=== PATIENT | male | born 1945 | race American Indian/Alaskan Native ===

== ENCOUNTER 2018-05-22 08:15 | Outpatient (CLI) | payer MEDICARE ==
--- NOTE | 2018-05-22 13:34 | PET Report ---
PET/CT:05/22/18 08:15:00 CLINICAL: Lung cancer RADIOPHARMACEUTICAL: 12.767mCi F18-FDG. COMPARISON: None. TECHNIQUE- Following intravenous injection of F-18 FDG and an approximately 60 minute uptake period, CT and PET images from the mid skull to the upper thighs were acquired with the patient in the fasted state. No contrast was administered. The CT protocol used for this PET CT study is designed for attenuation correction and anatomic localization of PET abnormalities. This distributor of directories CT is not desired to produce and cannot replace, [id number] diagnostic CT scans with specific imaging protocols for different body parts and indications. Plasma glucose at the time of this test: 86g/dl. The standardized uptake values (SUV) are normalized to patient body weight and indicate the highest activity concentration (SUV max) in a given disease site. FINDINGS: Brain--Physiologic FDG uptake in the visualized regions of the brain. Neck--Physiologic FDG uptake in mucosal structures. No mass or lymphadenopathy. Chest--Physiologic FDG uptake in mediastinal blood pool and myocardium. Lungs--An irregular FDG avid right lung mass originates in the upper lobe and appears to extend into the right middle lobe. It measures 4.6 x 4.3 cm with SUV 8.0. A noncalcified left lower lobe lung nodule measures 1.2 x 1.2 cm and demonstrates minimal FDG uptake with SUV 1.2. No other lung nodule or mass. Mild emphysema. Pleura/pericardium--No abnormal uptake. No pleural effusion. Thoracic nodes--An FDG avid subcarinal lymph node measures 3.6 x 2.4 cm with SUV 8.3. A precarinal FDG avid lymph node measures 2.7 x 1.9 cm with SUV 9.1. A retrocaval pretracheal lymph node measures 1.7 x 1.4 cm with SUV 8.1. No hilar lymphadenopathy. Hepatobiliary--Several FDG avid hepatic masses. The largest is a hypodense medial right hepatic mass adjacent to the intrahepatic IVC measuring 3.2 x 3.0 cm with SUV 6.3. Three additional FDG avid smaller right hepatic masses. Liver background SUV mean, as a reference for comparing FDG studies, is 2.5 . Spleen--No abnormal uptake. Pancreas--No abnormal uptake. Adrenal Glands--No mass and no abnormal uptake. Kidneys/Ureters/Bladder--No abnormal uptake. Abdominopelvic Nodes--No abnormal uptake. Bowel/Peritoneum/Mesentery--No abnormal uptake. Pelvic organs--No abnormal uptake. Bones/Soft Tissues--Several FDG avid metastases. The largest lesion involves the T8 vertebral body and erodes the posterior cortex of the body to the right of midline with SUV 7.0. A 9 mm FDG avid lytic lesion of the L4 vertebral body at the left lateral cortex with SUV 6.5. A 1.4 cm FDG avid lytic lesion of the left iliac bone with SUV 7.3 and a non-FDG avid 7 mm lytic lesion of the left ischium. Incidentally, a fracture of the C6 spinous process tip with FDG uptake. IMPRESSION- A 4.6 cm right upper lobe bronchogenic tumor with mediastinal monie metastasis, left lower lobe pulmonary metastasis, multifocal hepatic metastasis and multifocal skeletal metastasis. A fracture of the C6 spinous process is of uncertain chronicity and clinical significance.
== END 2018-05-22 08:16 | disposition home or self-care (01) ==
LOC: PET 08:15
DX: C34.91 Malignant neoplasm of unspecified part of right bronchus or lung (principal); E11.69 Type 2 diabetes mellitus with other specified complication; E66.3 Overweight; F17.210 Nicotine dependence, cigarettes, uncomplicated; I10 Essential (primary) hypertension; F12.90 Cannabis use, unspecified, uncomplicated; J43.9 Emphysema, unspecified; K76.89 Other specified diseases of liver; K21.9 Gastro-esophageal reflux disease without esophagitis
CPT/HCPCS: 78815; 82962; A9552

== ENCOUNTER 2018-08-12 18:54 | Inpatient (IN) | payer MEDICAID, MEDICARE ==
[2018-08-12] MEDS ORDERED: NACL 0.9% 1000 ML 1,000 ML IV ONE ×2 (19:18→22:37)
[2018-08-12 19:45] LABS: Basophils # (Auto) 0.1 K/mm3 (0.0-0.1); Basophils % (Auto) 1.1 % (0.0-1.8); Eosinophils # (Auto) 0.1 K/mm3 (0.0-0.4); Eosinophils % (Auto) 1.9 % (0.0-4.3); Hematocrit 34.1 % (35.5-45.6); Hemoglobin 11.3 gm/dl (11.8-15.2); Lymphocytes # (Auto) 0.9 K/mm3 (1.2-5.4); Lymphocytes % (Auto) 18.1 % (13.4-35.0); Mean Corpuscular HGB Conc 33 % (32-34); Mean Corpuscular Hemoglobin 28 pg (28-32); Mean Corpuscular Volume 84 fl (84-94); Monocytes # (Auto) 0.4 K/mm3 (0.0-0.8); Platelet Count 326 K/mm3 (140-440); Red Blood Count 4.06 M/mm3 (3.65-5.03); Red Cell Distribution Width 15.3 % (13.2-15.2)
[2018-08-12 20:03] LABS: Alanine Aminotransferase 31 units/L (7-56); Albumin 3.2 g/dL (3.9-5); BUN/Creatinine Ratio 18; Blood Urea Nitrogen 16 mg/dL (9-20); Calcium 8.8 mg/dL (8.4-10.2); Hemolysis Index 4; Lipase 16 units/L (13-60)
--- NOTE | 2018-08-12 21:13 | Emergency Department Report ---
HPI - General Chief Complaint: Abdominal Pain Time Seen by Provider: 08/12/18 20:47 - HPI HPI: 72-year-old -Citizen Of The [place] male presents to the emergency department with a one-day history of upper abdominal pain going on since he left [facility] yesterday. He was there for brain surgery for brain metastases from his lung cancer. He denies any fever, nausea, vomiting. The patient was found to have some decreased oxygen saturation in triage and does admit to some shortness of breath with exertion. He was placed on 3 L via nasal cannula but is not oxygen dependent at home. He has oral pain medication that he has been taking without much relief. He has both a primary care physician and oncologist but cannot currently remember their name. He also has a past medical history of diabetes, hypertension, seizures. ED Past Medical Hx - Past Medical History Previous Medical History?: Yes Hx Hypertension: Yes Hx Diabetes: Yes Hx of Cancer: Yes (lung) Hx Seizures: Yes Additional medical history: Lung Ca- with radiation and chemo - Surgical History Past Surgical History?: Yes Additional Surgical History: hemorroid,. brain tumor - Social History Smoking Status: Never Smoker Substance Use Type: None - Medications Home Medications: Home Medications Medication Instructions Recorded Confirmed Last Taken Type Azithromycin [Zithromax Z-JONEL] 250 mg PO DAILY 07/14/14 07/18/14 07/14/14 History Cyclobenzaprine [Flexeril 10mg] 10 mg PO TID PRN 07/14/14 07/18/14 07/14/14 History Esomeprazole Magnesium [Nexium] 20 mg PO QDAY 07/14/14 07/18/14 07/14/14 History Omeprazole [Prilosec] 20 mg PO QDAY 07/14/14 07/18/14 07/14/14 History oxyCODONE /ACETAMINOPHEN [Percocet 1 tab PO Q4H PRN 07/14/14 07/18/14 07/14/14 History 5/325 mg] oxyCODONE /ACETAMINOPHEN [Percocet 1 tab PO Q6HR PRN #15 tablet 07/14/14 Unknown Rx 5/325] predniSONE [Deltasone] 40 mg PO QDAY 07/14/14 07/18/14 07/14/14 History raNITIdine HCl [Zantac 300 MG TAB] 300 mg PO DAILY 07/14/14 07/18/14 07/14/14 History HYDROcodone/APAP 5-325 [[place] 1 each PO Q6HR PRN #7 tablet 07/18/14 Unknown Rx 5/325] Ondansetron [Zofran Odt] 4 mg PO Q8HR PRN #20 tab.rapdis 07/21/18 Unknown Rx Promethazine [Phenergan] 25 mg [place] Q6HR PRN #20 supp.rect 07/21/18 Unknown Rx ED Review of Systems ROS: Stated complaint: SOB Other details as noted in HPI Comment: All other systems reviewed and negative Constitutional: denies: chills, fever Eyes: denies: eye pain, eye discharge, vision change ENT: denies: ear pain, throat pain Respiratory: SOB with exertion. denies: cough Cardiovascular: denies: chest pain, palpitations Gastrointestinal: abdominal pain. denies: nausea, vomiting Genitourinary: denies: dysuria, discharge Musculoskeletal: denies: back pain, joint swelling, arthralgia Skin: denies: rash, lesions Neurological: denies: headache, numbness Physical Exam - Physical Exam Vital Signs: Vital Signs 08/12/18 08/12/18 19:13 20:56 Temperature 97.8 F Pulse Rate 69 Respiratory 26 H 16 Rate Blood Pressure 103/63 O2 Sat by Pulse 82 L 100 Oximetry Physical Exam: GENERAL: The patient is well-developed well-nourished. HENT: Normocephalic. Atraumatic. Patient has moist mucous membranes. EYES: Extraocular motions are intact. Pupils equal reactive to light bilaterally. NECK: Supple. Trachea is midline. CHEST/LUNGS: Clear to auscultation. Occasional productive cough is heard during examination. No tachypnea or accessory muscle use. There is no respiratory distress noted. HEART/CARDIOVASCULAR: Regular. There is no tachycardia. There is no murmur. ABDOMEN: Abdomen is soft. There is some upper abdominal tenderness to palpation. No guarding. Patient has normal bowel sounds. There is no abdominal distention. SKIN: Skin is warm and dry. NEURO: The patient is awake, alert, and oriented. The patient is cooperative. The patient has no focal neurologic deficits. The patient has normal speech. MUSCULOSKELETAL: There is no tenderness or deformity. There is no limitation range of motion. There is no evidence of acute injury. ED Course Vital Signs 08/12/18 08/12/18 19:13 20:56 Temperature 97.8 F Pulse Rate 69 Respiratory 26 H 16 Rate Blood Pressure 103/63 O2 Sat by Pulse 82 L 100 Oximetry ED Medical Decision Making - Lab Data Result diagrams: 08/12/18 19:37 08/12/18 19:37 - EKG Data -: EKG Interpreted by La EKG shows normal: sinus rhythm, axis, intervals, QRS complexes (Q waves to the inferior leads), ST-T waves Rate: normal - EKG Data When compared to previous EKG there are: previous EKG unavailable Interpretation: other (sinus rhythm, normal axis, Q waves to the inferior leads) - Radiology Data Radiology results: report reviewed PROCEDURE: XR ABD SERIES W CXR 1V TECHNIQUE: Abdominal series complete, including supine and upright AP views of the abdomen and frontal chest. HISTORY: abd pain COMPARISON: 07/21/2018 FINDINGS: Heart: Normal. Mediastinum/Vessels: Normal. Lungs/Pleural space: There is focal airspace opacity at the right lung base. There is a 13 millimeter nodular density at the left lung base Bowel gas pattern: Bowel gas pattern is nonobstructive. There is moderate to large volume of stool seen throughout the colon. Calcifications: None. Bony structures: Degenerative changes of the lumbar spine. Other: No free intraperitoneal air. IMPRESSION: Moderate to large volume of stool is seen throughout the colon, suggesting constipation. Transcribed By: [facility] Dictated By: KATIANA JIMENEZ M.D. Electronically Authenticated By: KATIANA JIMENEZ M.D. Signed Date/Time: 08/12/18 0097 PROCEDURE: CT ABDOMEN PELVIS WO CON TECHNIQUE: Computerized axial tomography of the abdomen and pelvis was performed without intravenous contrast. This study is performed without intravascular contrast material and its sensitivity for abdominal and pelvic pathology, including neoplasms, inflammation, abscess, free fluid, thrombosis, arterial dissection and infarction, is reduced compared with a contrast enhanced study. HISTORY: Abd pain COMPARISON: 07/21/2018 FINDINGS: Visualized lower thorax: There is bilateral lower lung atelectasis. There is a small spiculated area in the region of the minor fissure of the right middle lung measuring up to 3 centimeters. This may represent atypical infiltrate or other etiologies. A mass is not excluded. In the left lower lung there is a area of density measuring approximately 18 millimeters, this may represent an atypical infiltrate or developing mass in this region. These areas are not fully evaluated on this study.. Liver: Multiple low density areas throughout the liver are again noted. This could represent multiple etiologies. The largest in the right lobe measures up to 4 centimeters. This may be insistent with metastatic change. This has not changed since prior exam.. Spleen: Normal size and attenuation. Gallbladder and biliary system: Normal. Pancreas: Normal. Adrenals: Normal. Kidneys: Both kidneys have normal size. No hydronephrosis. The renal cortex is not well evaluated without contrast.. GI tract: No obstruction is seen. Significant fecal debris in the colon is noted. Moderate diverticular change within the distal colon is identified. Slight bowel wall thickening identified in the descending colon near the sigmoid colon junction. A short segment area of diverticulitis versus colitis is suspected this region. Moderate fecal debris identified in the colon proximal to this region.. Lymph nodes and mesentery: Normal. Vasculature: Moderate atherosclerosis of the aorta and all branching vessels.. Bladder: Normal. Reproductive organs: Normal. Peritoneum: No free fluid. Musculoskeletal structures: Moderate degenerative changes of the spine.. Other: None. IMPRESSION: Multiple liver nodules are most consistent with metastasis, this has not changed since prior study. Areas of increased density in the lower lungs bilaterally may represent pulmonary masses or atypical infiltrates. This is not fully evaluated on this study. There is bowel wall thickening with diverticular change in the distal descending colon near the junction of the sigmoid colon, early inflammatory change of diverticulitis is suspected this region. There is no complication. Significant fecal debris proximal to this region consistent with constipation. . Transcribed By: CHERELLE Dictated By: ADELINA CHUN MD Electronically Authenticated By: ADELINA CHUN MD Signed Date/Time: 08/13/18 0116 PROCEDURE: NM LUNG SCAN PERF/VENT TECHNIQUE: 4.3 mCi Tc-99m MAA was injected IV for pulmonary perfusion imaging in multiple projections. Twenty-two mCi Xenon 133 gas was inhaled for pulmonary ventilation imaging in multiple projections. Injection site: RIGHT antecubital fossa. CPT 53824 HISTORY: SOB, elevated dimer COMPARISON: No prior studies are available for comparison. FINDINGS: Perfusion: No defects . Ventilation: No defects . IMPRESSION: Normal Examination Transcribed By: CHERELLE Dictated By: ADELINA CHUN MD Electronically Authenticated By: ADELINA CHUN MD Signed Date/Time: 08/13/18 0125 - Medical Decision Making The patient presented with a complaint of abdominal pain. However he came through triage with some hypoxia. Patient does not appear in any respiratory distress. Labs showed an elevated an equivocal d-dimer of about 700. No leukocytosis. No urinary tract infection. Belly labs were mostly unremarkable. He had negative troponins 3. A VQ scan was done that was normal and/or low probability for pulmonary embolism. CT of the abdomen and pelvis shows some diverticulitis but no definitive etiology of the upper abdominal discomfort. He was started on some Levaquin. The patient has been on supplemental oxygen and has kept his oxygen saturation up with this. The patient has required multiple doses of pain medication. He will be admitted to the hospital for further evaluation and treatment and was accepted for admission by the hospitalist, Dr. Fields. - Differential Diagnosis pancreatitis, diverticulitis, colitis, gastritis, PE, pneumonia Critical Care Time: No Critical care attestation.: If time is entered above; I have spent that time in minutes in the direct care of this critically ill patient, excluding procedure time. ED Disposition Clinical Impression: Diverticulitis, Hypoxia, Liver metastases Abdominal pain Qualifiers: Abdominal location: upper abdomen, unspecified Qualified Code(s): R10.10 - Upper abdominal pain, unspecified Lung cancer Qualifiers: Laterality: unspecified laterality Lung location: unspecified part of lung Qualified Code(s): C34.90 - Malignant neoplasm of unspecified part of unspecified bronchus or lung Disposition: 09 OP ADMIT IP TO THIS HOSP Is pt being admited?: Yes Condition: Fair Time of Disposition: 05:03
[2018-08-12] MEDS ORDERED: SUBLIMAZE IV ONE (22:37)
[2018-08-12] MEDS ORDERED: SUBLIMAZE ONE (22:45)
--- NOTE | 2018-08-12 22:58 | XRay Report ---
FINAL REPORT PROCEDURE: XR ABD SERIES W CXR 1V TECHNIQUE: Abdominal series complete, including supine and upright AP views of the abdomen and frontal chest. HISTORY: abd pain COMPARISON: 07/21/2018 FINDINGS: Heart: Normal. Mediastinum/Vessels: Normal. Lungs/Pleural space: There is focal airspace opacity at the right lung base. There is a 13 millimeter nodular density at the left lung base Bowel gas pattern: Bowel gas pattern is nonobstructive. There is moderate to large volume of stool seen throughout the colon. Calcifications: None. Bony structures: Degenerative changes of the lumbar spine. Other: No free intraperitoneal air. IMPRESSION: Moderate to large volume of stool is seen throughout the colon, suggesting constipation.
[2018-08-13] MEDS ORDERED: SUBLIMAZE IV ONE (01:06)
[2018-08-13] MEDS ORDERED: SUBLIMAZE ONE (01:15)
--- NOTE | 2018-08-13 01:17 | Cat Scan Report ---
FINAL REPORT PROCEDURE: CT ABDOMEN PELVIS WO CON TECHNIQUE: Computerized axial tomography of the abdomen and pelvis was performed without intravenous contrast. This study is performed without intravascular contrast material and its sensitivity for abdominal and pelvic pathology, including neoplasms, inflammation, abscess, free fluid, thrombosis, arterial dissection and infarction, is reduced compared with a contrast enhanced study. HISTORY: Abd pain COMPARISON: 07/21/2018 FINDINGS: Visualized lower thorax: There is bilateral lower lung atelectasis. There is a small spiculated area in the region of the minor fissure of the right middle lung measuring up to 3 centimeters. This may represent atypical infiltrate or other etiologies. A mass is not excluded. In the left lower lung there is a area of density measuring approximately 18 millimeters, this may represent an atypical infiltrate or developing mass in this region. These areas are not fully evaluated on this study.. Liver: Multiple low density areas throughout the liver are again noted. This could represent multiple etiologies. The largest in the right lobe measures up to 4 centimeters. This may be insistent with metastatic change. This has not changed since prior exam.. Spleen: Normal size and attenuation. Gallbladder and biliary system: Normal. Pancreas: Normal. Adrenals: Normal. Kidneys: Both kidneys have normal size. No hydronephrosis. The renal cortex is not well evaluated without contrast.. GI tract: No obstruction is seen. Significant fecal debris in the colon is noted. Moderate diverticular change within the distal colon is identified. Slight bowel wall thickening identified in the descending colon near the sigmoid colon junction. A short segment area of diverticulitis versus colitis is suspected this region. Moderate fecal debris identified in the colon proximal to this region.. Lymph nodes and mesentery: Normal. Vasculature: Moderate atherosclerosis of the aorta and all branching vessels.. Bladder: Normal. Reproductive organs: Normal. Peritoneum: No free fluid. Musculoskeletal structures: Moderate degenerative changes of the spine.. Other: None. IMPRESSION: Multiple liver nodules are most consistent with metastasis, this has not changed since prior study. Areas of increased density in the lower lungs bilaterally may represent pulmonary masses or atypical infiltrates. This is not fully evaluated on this study. There is bowel wall thickening with diverticular change in the distal descending colon near the junction of the sigmoid colon, early inflammatory change of diverticulitis is suspected this region. There is no complication. Significant fecal debris proximal to this region consistent with constipation. .
--- NOTE | 2018-08-13 01:26 | Nuclear Medicine Report ---
FINAL REPORT PROCEDURE: NM LUNG SCAN PERF/VENT TECHNIQUE: 4.3 mCi Tc-99m MAA was injected IV for pulmonary perfusion imaging in multiple projections. Twenty-two mCi Xenon 133 gas was inhaled for pulmonary ventilation imaging in multiple projections. Injection site: RIGHT antecubital fossa. CPT 18020 HISTORY: SOB, elevated dimer COMPARISON: No prior studies are available for comparison. FINDINGS: Perfusion: No defects . Ventilation: No defects . IMPRESSION: Normal Examination
[2018-08-13] MEDS ORDERED: LEVAQUIN 750MG/150ML 750 MG/150 ML BAG IV ONE (01:29)
[2018-08-13] MEDS ORDERED: MORPHINE IV ONE (01:42)
[2018-08-13 02:00] LABS: Bacteria,Urine 1+ /HPF (Negative); Bilirubin,Urine NEG (Negative); Blood,Urine NEG (Negative); Color,Urine Yellow (Yellow); Mucus,Urine FEW /HPF; Protein,Urine <15 mg/dL mg/dL (Negative); RBC,Urine < 1.0 /HPF (0.0-6.0); Urobilinogen,Urine < 2.0 mg/dL (<2.0)
[2018-08-13] MEDS ORDERED: TYLENOL PO PRN (02:42)
[2018-08-13] MEDS ORDERED: DULCOLAX PO PRN (02:43)
[2018-08-13] MEDS: DILAUDID IV PRN ×7 (02:58→22:40)
--- NOTE | 2018-08-13 05:29 | History and Physical Report ---
CHIEF COMPLAINT: Abdominal pain. HISTORY OF PRESENT ILLNESS: The patient is a 72-year-old male who has been complaining of abdominal pain going on for about 24 hours. The patient was recently discharged from [facility] in [place] where he presented with metastasis of his lung cancer to the brain. The patient then started having abdominal pain and also complained of some shortness of breath on exertion. Denied history of chest pain. Denied history of fever or chills. Also, the patient denied history of nausea or vomiting. PAST MEDICAL HISTORY : Hypertension, diabetes mellitus, lung cancer, seizure disorder. PAST SURGICAL HISTORY: Pertinent for hemorrhoidal surgery and brain surgery. FAMILY HISTORY: Family history is noncontributory. SOCIAL HISTORY: The patient does not smoke, does not drink alcohol and does not use illicit drugs. MEDICATIONS: The patient is on Z-JONEL or Zithromax 250 mg daily, Flexeril 10 mg by mouth 3 times daily, Nexium 20 mg by mouth daily, Prilosec 20 mg by mouth daily, Percocet 5/325 mg 1 by mouth every 4 hours, prednisone 40 mg daily, ranitidine 300 mg daily, [place] 5/325 mg by mouth every 6 hours, Zofran under the tongue 4 mg every 8 hours as needed for nausea and vomiting, Phenergan 25 mg rectally every 6 hours as needed for nausea and vomiting. ALLERGIES: THE PATIENT IS ALLERGIC TO IBUPROFEN, PENICILLIN, TRAMADOL AND IV DYE. REVIEW OF SYSTEMS: CONSTITUTIONAL: There is no fever, no chills, no diaphoresis. HEENT: There is no headache or sore throat. CARDIOVASCULAR SYSTEM: There is no chest pain or orthopnea. RESPIRATORY SYSTEM: Shortness of breath present. No cough. GASTROINTESTINAL SYSTEM: Abdominal pain present. No nausea, no vomiting, no diarrhea. Constipation. NEUROLOGICAL SYSTEM: There is no numbness, no dizziness, no altered mental status. MUSCULOSKELETAL SYSTEM: There is no joint pain or swelling. DERMATOLOGICAL SYSTEM: There is no skin rash or itching. GENITOURINARY SYSTEM: There is no dysuria, hematuria, or flank pain. Rest of system review is normal. PHYSICAL EXAMINATION: GENERAL: At the time of exam, the patient was found to be alert, oriented x 3 and not in acute distress. VITAL SIGNS: At the initial time of presentation shows temperature of 97.8 degrees Fahrenheit, pulse of 69, respiration 26, blood pressure 103/63, O2 sat of 82% on room air. HEENT: Showed pupils to be equal, round, reactive to light and accommodating. Extraocular muscles are intact. NECK: Supple with no JVD or carotid bruit. CARDIOVASCULAR SYSTEM: Showed normal first and second heart sounds with no gallops or murmurs. RESPIRATORY SYSTEM: Showed good air entry on both sides of the lungs with no abnormal breath gas sounds. GASTROINTESTINAL SYSTEM: Showed abdomen to be full, soft with generalized tenderness with no guarding, no rigidity, no rebound tenderness. Bowel sound is normal. NEUROLOGICAL SYSTEM: Showed no focal deficit. MUSCULOSKELETAL SYSTEM: Showed no joint swelling or tenderness. DERMATOLOGICAL SYSTEM: Showed no skin rash. GENITOURINARY SYSTEM: Showing no costovertebral angle tenderness. PERTINENT LABORATORY AND IMAGING STUDIES: The patient had a CT of the abdomen and pelvis done and this shows multiple liver nodules, most consistent with metastasis, which has not changed since prior study. There is finding of areas of increased density in the lower lungs bilaterally, that may represent pulmonary masses or atypical infiltrate. There is also finding of bowel wall thickening with diverticular change in the distal descending colon near the junction of the sigmoid colon and the radiologist say that early inflammatory changes of diverticulitis is suspected in this region. He went forward to say that there is no complication and there is finding of significant fecal debris consistent with constipation. Lab results; the patient has CBC done with normal white count, slightly low hemoglobin of 11.3 and a slightly low hematocrit of 34.1 with CBC differential showing elevated segmented neutrophil count of 70.9%. The patient's coagulation studies show high D-dimer of 693.8. The patient's chemistry shows slightly low sodium of 134, unremarkable renal function test. The patient's troponin level came back normal and albumin was slightly low with a value of 3.2. The patient's urinalysis was unremarkable. DIAGNOSES: 1. Diverticulitis. 2. Abdominal pain. 3. Hypoxia. PLAN OF ACTION: 1. The patient will be admitted to medical floor. 2. The patient will be on IV Dilaudid 0.5 mg every 4 hours as needed for pain and will be on IV Levaquin 750 mg daily. 3. The patient will be on IV metronidazole or Flagyl 500 mg every 8 hours. 4. The patient will be on IV normal saline running at 75 mL an hour. 5. The patient will be on IV Zofran 4 mg every 8 hours for nausea and vomiting and will be on his home medications as shown in the medication reconciliation section. 6. The patient will be on oxygen by nasal cannula at 2 liters per minute and will also be on Dulcolax 10 mg by mouth daily as needed for constipation. JOB# [id number] OCN/NTS
[2018-08-13] MEDS: FLEXERIL PO PRN (05:50)
[2018-08-13] MEDS: NACL 0.9% 1000 ML 1,000 ML IV SCH (05:51)
[2018-08-13] MEDS: FLAGYL 500 MG/100 ML 500 MG/100 ML BAG IV SCH ×3 (06:21→22:33)
[2018-08-13] MEDS: LEVAQUIN 750MG/150ML 750 MG/150 ML BAG IV SCH (09:32)
[2018-08-13] MEDS: DELTASONE PO SCH (09:32)
[2018-08-13] MEDS: PROTONIX PO SCH (09:32)
[2018-08-13] MEDS: HEPARIN SUB-Q SCH (09:32)
[2018-08-13] MEDS ORDERED: DILAUDID IM PRN (12:18)
--- NOTE | 2018-08-13 13:13 | Event Note ---
Date: 08/13/18 Patient with acute diverticulitis. He has history of lung cancer, Brain cancer. I have seen and examined him. he is requesting more pain medications. Will increased dose of Dilaudid.
[2018-08-14] MEDS: DILAUDID IV PRN ×5 (03:40→21:28)
[2018-08-14] MEDS: PROTONIX PO SCH (10:18)
[2018-08-14] MEDS: DELTASONE PO SCH (10:18)
[2018-08-14] MEDS: FLEXERIL PO PRN (10:18)
[2018-08-14] MEDS: HEPARIN SUB-Q SCH ×3 (10:19→21:48)
[2018-08-14] MEDS: LEVAQUIN 750MG/150ML 750 MG/150 ML BAG IV SCH (10:19)
[2018-08-14] MEDS: FLAGYL 500 MG/100 ML 500 MG/100 ML BAG IV SCH ×3 (13:43→21:28)
--- NOTE | 2018-08-14 13:47 | Query- Dyspnea ---
Jay Mcdonald Lang Date:____08/14/18 [facility] [employer]/CDS:____trina/rashad Phone#:___[phone] Exercise your independent professional judgment when responding to query. Questions asked do not imply a particular answer is desired or expected. We greatly appreciate your clarification on this issue. Clinical Documentation States: 72-year-old -[place] male presents to the emergency department with a one-day history of upper abdominal pain going on since he left [facility] yesterday. He was there for brain surgery for brain metastases from his lung cancer. He denies any fever, nausea, vomiting. The patient was found to have some decreased oxygen saturation in triage and does admit to some shortness of breath with exertion. He was placed on 3 L via nasal cannula but is not oxygen dependent at home. Assessment and Plan: Diverticulitis Hypoxia Liver metastases Clinical Findings Show: 08/12/18 08/13/18 RR 26 22 O2 Sat 82 97 O2 Flow 3 3 Please clarify if the patient had any of the following conditions based on the above clinical findings: [x ] Respiratory Failure [x ] Acute [ ] Acute on Chronic [ ] Chronic [ ] Respiratory failure due to trauma [ ] Acute Respiratory Distress Syndrome [ ] Other: [ ] Unable to determine [ ] Comment/Explanation: Present on Admission: [x ] Yes (Y) [ ] Clinically undeterminable (W) [ ] No (N) Please also document response in your Progress Notes and/or Discharge Summary and indicate if the condition was present on admission. MARILUZD
--- NOTE | 2018-08-14 16:14 | Progress Note ---
Assessment and Plan Assessment and plan: Acute diverticulitis. Continue levaquin and Flagyl. Consult GI Lung cancer with mets to Brain, Liver. managed by Dr. Arriaga. To follow as outpatient Full code History Interval history: Patient with lung cancer with mets Follows with Dr. Arriaga Presented with abdominal pain and diagnosed with diverticulitis Hospitalist Physical - Physical exam Narrative exam: GEN: Not in acute distress, sitting up in bed, HEENT: Normocephalic, atraumatic, Neck: supple, No JVD Lungs: Clear to auscultation bilaterally, no crackles Heart:S1 and S2 reg, no murmurs, rubs or gallop Abd:soft, tender, non distended,Normal bowel sounds Ext: No edema, no clubbing, no cyanosis Neuro: Awake, alert, oriented x 3, no focal signs - Constitutional Vitals: Temp Pulse Resp BP Pulse Ox 97.5 F L 80 18 152/100 99 08/14/18 13:55 08/14/18 13:55 08/14/18 13:55 08/14/18 13:55 08/14/18 13:55 Results - Labs CBC & Chem 7: 08/12/18 19:37 08/12/18 19:37 Labs: Laboratory Last Values WBC 4.9 K/mm3 (4.5-11.0) 08/12/18 19:37 RBC 4.06 M/mm3 (3.65-5.03) 08/12/18 19:37 Hgb 11.3 gm/dl (11.8-15.2) L 08/12/18 19:37 Hct 34.1 % (35.5-45.6) L 08/12/18 19:37 MCV 84 fl (84-94) 08/12/18 19:37 MCH 28 pg (28-32) 08/12/18 19:37 MCHC 33 % (32-34) 08/12/18 19:37 RDW 15.3 % (13.2-15.2) H 08/12/18 19:37 Plt Count 326 K/mm3 (140-440) 08/12/18 19:37 Lymph % (Auto) 18.1 % (13.4-35.0) 08/12/18 19:37 [place] % (Auto) 8.0 % (0.0-7.3) H 08/12/18 19:37 Eos % (Auto) 1.9 % (0.0-4.3) 08/12/18 19:37 Baso % (Auto) 1.1 % (0.0-1.8) 08/12/18 19:37 Lymph # 0.9 K/mm3 (1.2-5.4) L 08/12/18 19:37 [place] # 0.4 K/mm3 (0.0-0.8) 08/12/18 19:37 Eos # 0.1 K/mm3 (0.0-0.4) 08/12/18 19:37 Baso # 0.1 K/mm3 (0.0-0.1) 08/12/18 19:37 Seg Neutrophils % 70.9 % (40.0-70.0) H 08/12/18 19:37 Seg Neutrophils # 3.4 K/mm3 (1.8-7.7) 08/12/18 19:37 D-Dimer 693.82 ng/mlDDU (0-234) H 08/12/18 21:19 Sodium 134 mmol/L (137-145) L 08/12/18 19:37 Potassium 4.4 mmol/L (3.6-5.0) 08/12/18 19:37 Chloride 99.8 mmol/L (98-107) 08/12/18 19:37 Carbon Dioxide 25 mmol/L (22-30) 08/12/18 19:37 Anion Gap 14 mmol/L 08/12/18 19:37 BUN 16 mg/dL (9-20) 08/12/18 19:37 Creatinine 0.9 mg/dL (0.8-1.5) 08/12/18 19:37 Estimated GFR > 60 ml/min 08/12/18 19:37 BUN/Creatinine Ratio 18 % 08/12/18 19:37 Glucose 97 mg/dL (75-100) 08/12/18 19:37 Calcium 8.8 mg/dL (8.4-10.2) 08/12/18 19:37 Total Bilirubin 0.40 mg/dL (0.1-1.2) 08/12/18 19:37 AST 22 units/L (5-40) 08/12/18 19:37 ALT 31 units/L (7-56) 08/12/18 19:37 Alkaline Phosphatase 77 units/L (35-129) 08/12/18 19:37 Troponin T < 0.010 ng/mL (0.00-0.029) 08/13/18 01:29 Total Protein 7.2 g/dL (6.3-8.2) 08/12/18 19:37 Albumin 3.2 g/dL (3.9-5) L 08/12/18 19:37 Albumin/Globulin Ratio 0.8 % 08/12/18 19:37 Lipase 16 units/L (13-60) 08/12/18 19:37 Urine Color Yellow (Yellow) 08/13/18 00:50 Urine Turbidity Slightly-cloudy (Clear) 08/13/18 00:50 Urine pH 7.0 (5.0-7.0) 08/13/18 00:50 Ur Specific [place] 1.012 (1.003-1.030) 08/13/18 00:50 Urine Protein <15 mg/dl mg/dL (Negative) 08/13/18 00:50 Urine Glucose (UA) Neg mg/dL (Negative) 08/13/18 00:50 Urine Ketones Neg mg/dL (Negative) 08/13/18 00:50 Urine Blood Neg (Negative) 08/13/18 00:50 Urine Nitrite Neg (Negative) 08/13/18 00:50 Urine Bilirubin Neg (Negative) 08/13/18 00:50 Urine Urobilinogen < 2.0 mg/dL (<2.0) 08/13/18 00:50 Ur Leukocyte Esterase Neg (Negative) 08/13/18 00:50 Urine WBC (Auto) 2.0 /HPF (0.0-6.0) 08/13/18 00:50 Urine RBC (Auto) < 1.0 /HPF (0.0-6.0) 08/13/18 00:50 Urine Bacteria (Auto) 1+ /HPF (Negative) 08/13/18 00:50 Urine Mucus Few /HPF 08/13/18 00:50
[2018-08-14] MEDS: NACL 0.9% 1000 ML 1,000 ML IV SCH (17:07)
[2018-08-14] MEDS: ZOFRAN IV PRN (17:07)
[2018-08-15] MEDS ORDERED: ALUM-MAG HYDROX-SIMETH 200-200-20MG/5ML PO PRN (00:36)
[2018-08-15] MEDS: DILAUDID IV PRN ×4 (02:34→20:55)
[2018-08-15] MEDS: NACL 0.9% 1000 ML 1,000 ML IV SCH (05:19)
[2018-08-15] MEDS: FLAGYL 500 MG/100 ML 500 MG/100 ML BAG IV SCH (05:19)
[2018-08-15] MEDS: DELTASONE PO SCH (08:59)
[2018-08-15] MEDS: LEVAQUIN 750MG/150ML 750 MG/150 ML BAG IV SCH (08:59)
[2018-08-15] MEDS: PROTONIX PO SCH (08:59)
[2018-08-15] MEDS: HEPARIN SUB-Q SCH ×2 (09:00→20:55)
--- NOTE | 2018-08-15 10:28 | Gastroenterology Consultation ---
<ROX ESCOBEDO - Last Filed: 08/15/18 10:30> History of Present Illness - Reason for Consult Consult date: 08/15/18 diverticulitis Requesting physician: CHET MARTINEZ - History of Present Illness Patient is a 72 y/o male with PMH of HTN, DM, seizures, and lung cancer with mets (to the brain and liver; s/p recent brain surgery at [facility]; followed by Dr. Arriaga) who presented to ED with c/o abd pain with CT showing acute diverticulitis to which GI has been consulted. This am patient was resting in bed w/o acute distress but noted to be uncomfortable with c/o all over body pain that has been unrelieved with pain medications and continued right sided abd pain. He reports also being unable to tolerate eating breakfast with 1 episode of vomiting this am. Admits to constipation with no recent BM but denies fever, CP, signs of bleeding, or diarrhea. Last colonoscopy approximately 2 years ago while living in [place] with negative results per patient. No known Fhx of colon cancer. Past History Past Medical History: cancer (lung cancer with mets), diabetes, hypertension, seizures Past Surgical History: Other (hemorrhoid, brain) Social history: lives with family Medications and Allergies Allergies Allergy/AdvReac Type Severity Reaction Status Date / Time ibuprofen Allergy Unknown Verified 07/18/14 15:39 Penicillins Allergy Unknown Verified 01/03/14 12:00 tramadol Allergy Hives Verified 07/18/14 15:39 iv dye Allergy Unknown Uncoded 08/13/18 00:53 Home Medications Medication Instructions Recorded Confirmed Last Taken Type Azithromycin [Zithromax Z-JONEL] 250 mg PO DAILY 07/14/14 08/13/18 08/12/18 10:00 History Cyclobenzaprine [Flexeril 10mg] 10 mg PO TID PRN 07/14/14 08/13/18 08/12/18 10: 00 History Esomeprazole Magnesium [Nexium] 20 mg PO QDAY 07/14/14 08/13/18 08/12/18 10:00 History Omeprazole [Prilosec] 20 mg PO QDAY 07/14/14 08/13/18 08/12/18 10:00 History oxyCODONE /ACETAMINOPHEN [Percocet 1 tab PO Q4H PRN 07/14/14 08/13/18 08/12/18 10:00 History 5/325 mg] oxyCODONE /ACETAMINOPHEN [Percocet 1 tab PO Q6HR PRN #15 tablet 07/14/1408/12/18 10:00 Rx 5/325] predniSONE [Deltasone] 40 mg PO QDAY 07/14/14 08/13/18 08/12/18 10:00 History raNITIdine HCl [Zantac 300 MG TAB] 300 mg PO DAILY 07/14/14 08/13/18 08/12/18 10 :00 History HYDROcodone/APAP 5-325 [[place] 1 each PO Q6HR PRN #7 tablet 07/18/14 08/13/18 10:00 Rx 5/325] Ondansetron [Zofran Odt] 4 mg PO Q8HR PRN #20 tab.rapdis 07/21/18 08/13/1808/12 10:00 Rx Promethazine [Phenergan] 25 mg MS Q6HR PRN #20 supp.rect 07/21/18 08/13/1808/12 10:00 Rx Active Meds: Active Medications Acetaminophen (Tylenol) 650 mg PO Q4H PRN PRN Reason: Fever >101 Last Admin: 08/14/18 10:18 Dose: 650 mg Al Hydrox/Mg Hydrox/Simethicone (Alum-Mag Hydrox-Simeth [phone]/5ml) 30 ml PO Q4H PRN PRN Reason: Indigestion Last Admin: 08/15/18 00:57 Dose: 30 ml Bisacodyl (Dulcolax) 10 mg PO QDAY PRN PRN Reason: Constipation Cyclobenzaprine HCl (Flexeril) 10 mg PO TID PRN PRN Reason: Muscle Spasm Last Admin: 08/14/18 10:18 Dose: 10 mg Heparin Sodium (Porcine) (Heparin) 5,000 unit SUB-Q Q12HR LIZETH Last Admin: 08/15/18 09:00 Dose: 5,000 unit Hydromorphone HCl (Dilaudid) 2 mg IV Q4H PRN PRN Reason: Pain , Severe (7-10) Last Admin: 08/15/18 09:00 Dose: 2 mg Levofloxacin/Dextrose (Levaquin 750mg/150ml) 750 mg in 150 mls @ 100 mls/hr IV Q24HR [facility]; Protocol Last Admin: 08/15/18 08:59 Dose: 100 mls/hr Metronidazole (Flagyl 500 Mg/100 Ml) 500 mg in 100 mls @ 100 mls/hr IV Q8HR LIZETH ; Protocol Last Admin: 08/15/18 05:19 Dose: 100 mls/hr Sodium Chloride (Nacl 0.9% 1000 Ml) 1,000 mls @ 75 mls/hr IV DIRECT LIZETH Last Admin: 08/15/18 05:19 Dose: 75 mls/hr Ondansetron HCl (Zofran) 4 mg IV Q8H PRN PRN Reason: Nausea And Vomiting Last Admin: 08/14/18 17:07 Dose: 4 mg Pantoprazole Sodium (Protonix) 20 mg PO QDAY [facility] Last Admin: 08/15/18 08:59 Dose: 20 mg Prednisone (Deltasone) 40 mg PO QDAY [facility] Last Admin: 08/15/18 08:59 Dose: 40 mg Review of Systems - Review of Systems All systems: negative Constitutional: other (generalized body pain) Gastrointestinal: abdominal pain, nausea, vomiting Exam - Constitutional Vital Signs: Temp Pulse Resp BP Pulse Ox 97.4 F L 72 20 153/92 96 08/15/18 02:59 08/15/18 08:25 08/15/18 09:00 08/15/18 08:25 08/15/18 08:25 General appearance: no acute distress - Respiratory Respiratory: bilateral: diminished - Cardiovascular Rhythm: regular Heart Sounds: Present: S1 & S2 - Gastrointestinal General gastrointestinal: Present: soft, tender (right sided TTP), non-distended , normal bowel sounds - Neurologic Neurological: alert and oriented x3 - Labs CBC & Chem 7: 08/12/18 19:37 08/12/18 19:37 Assessment and Plan 1.acute diverticulitis 2.constipation 3.lung cancer with mets -afebrile -WBC WNL -abd CT showed metastasis to liver, increased density in the lower lungs (may represent pulmonary masses or atypical infiltrates), constipation, and bowel wall thickening with diverticular change in the distal descending colon near the junction of the sigmoid colon suspected to be diverticulitis -last colonoscopy approximately 2 years ago with negative results per patient report -clinically, patient reports continued left sided abd pain with also generalized body pain and N/V x 1 episode this am with inability to tolerate diet -will decrease diet to clear liquids -start on daily Miralax for constipation -continue levaquin/Flagyl -consider surgical consult -continue supportive care -further recommendations to follow <MITUL LITTLEJOHN - Last Filed: 08/15/18 13:18> Medications and Allergies Active Meds: Active Medications Acetaminophen (Tylenol) 650 mg PO Q4H PRN PRN Reason: Fever >101 Last Admin: 08/14/18 10:18 Dose: 650 mg Al Hydrox/Mg Hydrox/Simethicone (Alum-Mag Hydrox-Simeth [phone]/5ml) 30 ml PO Q4H PRN PRN Reason: Indigestion Last Admin: 08/15/18 00:57 Dose: 30 ml Bisacodyl (Dulcolax) 10 mg PO QDAY PRN PRN Reason: Constipation Cyclobenzaprine HCl (Flexeril) 10 mg PO TID PRN PRN Reason: Muscle Spasm Last Admin: 08/14/18 10:18 Dose: 10 mg Heparin Sodium (Porcine) (Heparin) 5,000 unit SUB-Q Q12HR LIZETH Last Admin: 08/15/18 09:00 Dose: 5,000 unit Hydromorphone HCl (Dilaudid) 2 mg IV Q4H PRN PRN Reason: Pain , Severe (7-10) Last Admin: 08/15/18 09:00 Dose: 2 mg Sodium Chloride (Nacl 0.9% 1000 Ml) 1,000 mls @ 75 mls/hr IV DIRECT LIZETH Last Admin: 08/15/18 05:19 Dose: 75 mls/hr Levofloxacin (Levaquin) 750 mg PO Q24HR [facility]ZETH Metronidazole (Flagyl) 500 mg PO Q8HR [facility] Ondansetron HCl (Zofran) 4 mg IV Q8H PRN PRN Reason: Nausea And Vomiting Last Admin: 08/14/18 17:07 Dose: 4 mg Pantoprazole Sodium (Protonix) 20 mg PO QDAY [facility] Last Admin: 08/15/18 08:59 Dose: 20 mg Polyethylene Glycol (Miralax 3350) 17 gm PO QDAY LIZETH Last Admin: 09/28/18 12:19 Dose: 17 gm Prednisone (Deltasone) 40 mg PO QDAY LIZETH Last Admin: 08/15/18 08:59 Dose: 40 mg Exam - Constitutional Vital Signs: Temp Pulse Resp BP Pulse Ox 97.4 F L 72 20 153/92 95 08/15/18 02:59 08/15/18 08:25 08/15/18 09:00 08/15/18 08:25 08/15/18 10:00 - Labs CBC & Chem 7: 08/12/18 19:37 08/12/18 19:37 Assessment and Plan Pt seen and examined. Agree with note above. Pt with metastatic lung cancer; presenting with abd pain and ct with possible acute diverticulitis (no signs of complications noted); unable to rule out other colon path (malignancy) but reports fairly recent colonoscopy within last couple years w/o significant findings per pt's understanding. cont abx, reports some improvement today compared to admission.
[2018-08-15] MEDS: MIRALAX 3350 PO SCH (12:19)
[2018-08-15] MEDS: FLAGYL PO SCH ×2 (13:35→20:54)
--- NOTE | 2018-08-15 16:31 | Progress Note ---
Hospitalist Physical - Constitutional Vitals: Temp Pulse Resp BP Pulse Ox 97.9 F 80 20 145/86 97 08/15/18 14:39 08/15/18 14:39 08/15/18 14:39 08/15/18 14:39 08/15/18 14:39 Results - Labs CBC & Chem 7: 08/12/18 19:37 08/12/18 19:37 Labs: Laboratory Last Values WBC 4.9 K/mm3 (4.5-11.0) 08/12/18 19:37 RBC 4.06 M/mm3 (3.65-5.03) 08/12/18 19:37 Hgb 11.3 gm/dl (11.8-15.2) L 08/12/18 19:37 Hct 34.1 % (35.5-45.6) L 08/12/18 19:37 MCV 84 fl (84-94) 08/12/18 19:37 MCH 28 pg (28-32) 08/12/18 19:37 MCHC 33 % (32-34) 08/12/18 19:37 RDW 15.3 % (13.2-15.2) H 08/12/18 19:37 Plt Count 326 K/mm3 (140-440) 08/12/18 19:37 Lymph % (Auto) 18.1 % (13.4-35.0) 08/12/18 19:37 [place] % (Auto) 8.0 % (0.0-7.3) H 08/12/18 19:37 Eos % (Auto) 1.9 % (0.0-4.3) 08/12/18 19:37 Baso % (Auto) 1.1 % (0.0-1.8) 08/12/18 19:37 Lymph # 0.9 K/mm3 (1.2-5.4) L 08/12/18 19:37 [place] # 0.4 K/mm3 (0.0-0.8) 08/12/18 19:37 Eos # 0.1 K/mm3 (0.0-0.4) 08/12/18 19:37 Baso # 0.1 K/mm3 (0.0-0.1) 08/12/18 19:37 Seg Neutrophils % 70.9 % (40.0-70.0) H 08/12/18 19:37 Seg Neutrophils # 3.4 K/mm3 (1.8-7.7) 08/12/18 19:37 D-Dimer 693.82 ng/mlDDU (0-234) H 08/12/18 21:19 Sodium 134 mmol/L (137-145) L 08/12/18 19:37 Potassium 4.4 mmol/L (3.6-5.0) 08/12/18 19:37 Chloride 99.8 mmol/L (98-107) 08/12/18 19:37 Carbon Dioxide 25 mmol/L (22-30) 08/12/18 19:37 Anion Gap 14 mmol/L 08/12/18 19:37 BUN 16 mg/dL (9-20) 08/12/18 19:37 Creatinine 0.9 mg/dL (0.8-1.5) 08/12/18 19:37 Estimated GFR > 60 ml/min 08/12/18 19:37 BUN/Creatinine Ratio 18 % 08/12/18 19:37 Glucose 97 mg/dL (75-100) 08/12/18 19:37 Calcium 8.8 mg/dL (8.4-10.2) 08/12/18 19:37 Total Bilirubin 0.40 mg/dL (0.1-1.2) 08/12/18 19:37 AST 22 units/L (5-40) 08/12/18 19:37 ALT 31 units/L (7-56) 08/12/18 19:37 Alkaline Phosphatase 77 units/L (35-129) 08/12/18 19:37 Troponin T < 0.010 ng/mL (0.00-0.029) 08/13/18 01:29 Total Protein 7.2 g/dL (6.3-8.2) 08/12/18 19:37 Albumin 3.2 g/dL (3.9-5) L 08/12/18 19:37 Albumin/Globulin Ratio 0.8 % 08/12/18 19:37 Lipase 16 units/L (13-60) 08/12/18 19:37 Urine Color Yellow (Yellow) 08/13/18 00:50 Urine Turbidity Slightly-cloudy (Clear) 08/13/18 00:50 Urine pH 7.0 (5.0-7.0) 08/13/18 00:50 Ur Specific [place] 1.012 (1.003-1.030) 08/13/18 00:50 Urine Protein <15 mg/dl mg/dL (Negative) 08/13/18 00:50 Urine Glucose (UA) Neg mg/dL (Negative) 08/13/18 00:50 Urine Ketones Neg mg/dL (Negative) 08/13/18 00:50 Urine Blood Neg (Negative) 08/13/18 00:50 Urine Nitrite Neg (Negative) 08/13/18 00:50 Urine Bilirubin Neg (Negative) 08/13/18 00:50 Urine Urobilinogen < 2.0 mg/dL (<2.0) 08/13/18 00:50 Ur Leukocyte Esterase Neg (Negative) 08/13/18 00:50 Urine WBC (Auto) 2.0 /HPF (0.0-6.0) 08/13/18 00:50 Urine RBC (Auto) < 1.0 /HPF (0.0-6.0) 08/13/18 00:50 Urine Bacteria (Auto) 1+ /HPF (Negative) 08/13/18 00:50 Urine Mucus Few /HPF 08/13/18 00:50
--- NOTE | 2018-08-15 17:11 | Consultation ---
History of Present Illness Consult date: 08/15/18 Reason for consult: abdominal pain Requesting physician: CHET MARTINEZ Chief complaint: right sided abdominal pain - History of present illness History of present illness: This is unfortunate 72-year-old gentleman with a history of metastatic lung cancer we are being asked to see for abdominal pain and nausea/vomiting. Patient was diagnosed with lung cancer about 3 to 4 months ago. He has metastatic disease to the brain and the liver. He reports for the past 4 weeks , he has had persistent right-sided abdominal pain and nausea and vomiting. Within 20 minutes of eating a very small amount, he will become nauseated and vomit. His lost about 20 pounds over the last 4 to 6 weeks. He denies any pelvic or left lower quadrant pain. Denies any blood in the bowel movements. He has never had diverticulitis in the past. Denies any fevers. Past History Past Medical History: cancer (lung cancer with mets), diabetes, hypertension, seizures Past Surgical History: Other (hemorrhoid, brain) Social history: lives with family Medications and Allergies Allergies Allergy/AdvReac Type Severity Reaction Status Date / Time ibuprofen Allergy Unknown Verified 07/18/14 15:39 Penicillins Allergy Unknown Verified 01/03/14 12:00 tramadol Allergy Hives Verified 07/18/14 15:39 iv dye Allergy Unknown Uncoded 08/13/18 00:53 Home Medications Medication Instructions Recorded Confirmed Last Taken Type Azithromycin [Zithromax Z-JONEL] 250 mg PO DAILY 07/14/14 08/13/18 08/12/18 10:00 History Cyclobenzaprine [Flexeril 10mg] 10 mg PO TID PRN 07/14/14 08/13/18 08/12/18 10: 00 History Esomeprazole Magnesium [Nexium] 20 mg PO QDAY 07/14/14 08/13/18 08/12/18 10:00 History Omeprazole [Prilosec] 20 mg PO QDAY 07/14/14 08/13/18 08/12/18 10:00 History oxyCODONE /ACETAMINOPHEN [Percocet 1 tab PO Q4H PRN 07/14/14 08/13/18 08/12/18 10:00 History 5/325 mg] oxyCODONE /ACETAMINOPHEN [Percocet 1 tab PO Q6HR PRN #15 tablet 07/14/1408/12/18 10:00 Rx 5/325] predniSONE [Deltasone] 40 mg PO QDAY 07/14/14 08/13/18 08/12/18 10:00 History raNITIdine HCl [Zantac 300 MG TAB] 300 mg PO DAILY 07/14/14 08/13/18 08/12/18 10 :00 History HYDROcodone/APAP 5-325 [[place] 1 each PO Q6HR PRN #7 tablet 07/18/14 08/13/18 10:00 Rx 5/325] Ondansetron [Zofran Odt] 4 mg PO Q8HR PRN #20 tab.rapdis 07/21/18 08/13/1808/12 10:00 Rx Promethazine [Phenergan] 25 mg AR Q6HR PRN #20 supp.rect 07/21/18 08/13/1808/12 10:00 Rx Active Meds: Active Medications Acetaminophen (Tylenol) 650 mg PO Q4H PRN PRN Reason: Fever >101 Last Admin: 08/14/18 10:18 Dose: 650 mg Al Hydrox/Mg Hydrox/Simethicone (Alum-Mag Hydrox-Simeth [phone]/5ml) 30 ml PO Q4H PRN PRN Reason: Indigestion Last Admin: 08/15/18 00:57 Dose: 30 ml Bisacodyl (Dulcolax) 10 mg PO QDAY PRN PRN Reason: Constipation Cyclobenzaprine HCl (Flexeril) 10 mg PO TID PRN PRN Reason: Muscle Spasm Last Admin: 08/14/18 10:18 Dose: 10 mg Heparin Sodium (Porcine) (Heparin) 5,000 unit SUB-Q Q12HR LIZETH Last Admin: 08/15/18 09:00 Dose: 5,000 unit Hydromorphone HCl (Dilaudid) 2 mg IV Q4H PRN PRN Reason: Pain , Severe (7-10) Last Admin: 08/15/18 13:35 Dose: 2 mg Sodium Chloride (Nacl 0.9% 1000 Ml) 1,000 mls @ 75 mls/hr IV DIRECT LIZETH Last Admin: 08/15/18 05:19 Dose: 75 mls/hr Levofloxacin (Levaquin) 750 mg PO Q24HR [facility] Metoclopramide HCl (Reglan) 10 mg IV Q6H [facility] Metronidazole (Flagyl) 500 mg PO Q8HR [facility] Last Admin: 08/15/18 13:35 Dose: 500 mg Ondansetron HCl (Zofran) 4 mg IV Q8H PRN PRN Reason: Nausea And Vomiting Last Admin: 08/14/18 17:07 Dose: 4 mg Pantoprazole Sodium (Protonix) 20 mg PO QDAY [facility] Last Admin: 08/15/18 08:59 Dose: 20 mg Polyethylene Glycol (Miralax 3350) 17 gm PO QDAY [facility] Last Admin: 08/15/18 12:19 Dose: 17 gm Prednisone (Deltasone) 40 mg PO QDAY [facility] Last Admin: 08/15/18 08:59 Dose: 40 mg Review of Systems - Constitutional weight loss, chills, chronic pain (right abdominal), no fever - Cardiovascular no chest pain - Respiratory no shortness of breath - Gastrointestinal abdominal pain, nausea, vomiting, change in bowel habits, early satiety, no hematemesis, no coffee ground emesis, no BRBPR, no melena, no hematochezia - Genitourinary no dysuria - Integumentary no rash Exam Vital Signs Temp Pulse Resp BP Pulse Ox 97.8 F 69 26 H 103/63 82 L 08/12/18 19:13 08/12/18 19:13 08/12/18 19:13 08/12/18 19:13 08/12/18 19:13 - General physical appearance Positive: no distress, no pain, other (thin, elderly man) - Eyes Positive: normal occular movement - Respiratory Positive: normal expansion, normal respiratory effort, clear to auscultation - Cardiovascular Rhythm: regular - Abdomen Abdomen: Present: soft, tender (only in the RUQ. No tenderness on the left or in the pelvic area). Absent: distended, rigid, wound, surgical scars - Integumentary no rash, no growths, no abnormal pigmentation - Neurologic Neurologic: alert and oriented to time, place and person - Psychiatric Psychiatric: appropriate mood/affect, intact judgment & insight Results - Labs 08/12/18 19:37 08/12/18 19:37 - Imaging CT scan - pelvis: report reviewed, image reviewed US - abdomen: report reviewed, image reviewed Assessment and Plan - Patient Problems (1) Abdominal pain Current Visit: Yes Status: Acute Qualifiers: Abdominal location: upper abdomen, unspecified Qualified Code(s): R10.10 - Upper abdominal pain, unspecified Plan to address problem: Patient is stable. His exam in history are not consistent with diverticulitis. His pain most likely relates to significant constipation and/or metastatic disease to the liver. I recommend therapy on resolving the constipation and palliative pain control. There is no need for antibiotics. No surgical intervention is necessary. Patient may be discharged from my standpoint whenever he is medically stable. Discussed with Dr. Martinez. Please call with questions. Time=45min
[2018-08-15] MEDS: REGLAN IV SCH (18:25)
[2018-08-16] MEDS: HEPARIN SUB-Q SCH ×2 (00:07→10:39)
[2018-08-16] MEDS: REGLAN IV SCH ×2 (00:10→14:10)
[2018-08-16] MEDS: DILAUDID IV PRN ×2 (02:27→06:15)
[2018-08-16] MEDS: FLAGYL PO SCH ×2 (06:11→14:10)
[2018-08-16] MEDS ORDERED: PERCOCET 5/325 PO PRN (09:52)
[2018-08-16] MEDS ORDERED: LEVAQUIN PO SCH (10:00)
[2018-08-16] MEDS: DELTASONE PO SCH (10:05)
[2018-08-16] MEDS: MIRALAX 3350 PO SCH (10:06)
[2018-08-16] MEDS ORDERED: PROTONIX IV SCH (11:00)
--- NOTE | 2018-08-16 11:58 | Hem/Onc Consultation ---
History of Present Illness - Reason for Consult Consult date: 08/16/18 - History of Present Illness Patient with known lung cancer. 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 He is under Dr. Arriaga's care. Admitted with abdominal pain. He feels better. Past History Past Medical History: cancer (lung cancer with mets), diabetes, hypertension, seizures Past Surgical History: Other (hemorrhoid, brain) Social history: lives with family Medications and Allergies Allergies Allergy/AdvReac Type Severity Reaction Status Date / Time ibuprofen Allergy Unknown Verified 07/18/14 15:39 Penicillins Allergy Unknown Verified 01/03/14 12:00 tramadol Allergy Hives Verified 07/18/14 15:39 iv dye Allergy Unknown Uncoded 08/13/18 00:53 Home Medications Medication Instructions Recorded Confirmed Last Taken Type Azithromycin [Zithromax Z-JONEL] 250 mg PO DAILY 07/14/14 08/13/18 08/12/18 10:00 History Cyclobenzaprine [Flexeril 10mg] 10 mg PO TID PRN 07/14/14 08/13/18 08/12/18 10: 00 History Esomeprazole Magnesium [Nexium] 20 mg PO QDAY 07/14/14 08/13/18 08/12/18 10:00 History Omeprazole [Prilosec] 20 mg PO QDAY 07/14/14 08/13/18 08/12/18 10:00 History oxyCODONE /ACETAMINOPHEN [Percocet 1 tab PO Q4H PRN 07/14/14 08/13/18 08/12/18 10:00 History 5/325 mg] oxyCODONE /ACETAMINOPHEN [Percocet 1 tab PO Q6HR PRN #15 tablet 07/14/1408/12/18 10:00 Rx 5/325] predniSONE [Deltasone] 40 mg PO QDAY 07/14/14 08/13/18 08/12/18 10:00 History raNITIdine HCl [Zantac 300 MG TAB] 300 mg PO DAILY 07/14/14 08/13/18 08/12/18 10 :00 History HYDROcodone/APAP 5-325 [[place] 1 each PO Q6HR PRN #7 tablet 07/18/14 08/13/18 10:00 Rx 5/325] Ondansetron [Zofran Odt] 4 mg PO Q8HR PRN #20 tab.rapdis 07/21/18 08/13/1808/12 10:00 Rx Promethazine [Phenergan] 25 mg [place] Q6HR PRN #20 supp.rect 07/21/18 08/13/1808/12 10:00 Rx Active Meds: Active Medications Acetaminophen (Tylenol) 650 mg PO Q4H PRN PRN Reason: Fever >101 Last Admin: 08/14/18 10:18 Dose: 650 mg Al Hydrox/Mg Hydrox/Simethicone (Alum-Mag Hydrox-Simeth [phone]/5ml) 30 ml PO Q4H PRN PRN Reason: Indigestion Last Admin: 08/15/18 00:57 Dose: 30 ml Bisacodyl (Dulcolax) 10 mg PO QDAY PRN PRN Reason: Constipation Cyclobenzaprine HCl (Flexeril) 10 mg PO TID PRN PRN Reason: Muscle Spasm Last Admin: 08/14/18 10:18 Dose: 10 mg Heparin Sodium (Porcine) (Heparin) 5,000 unit SUB-Q Q12HR [facility] Last Admin: 08/16/18 10:39 Dose: 5,000 unit Sodium Chloride (Nacl 0.9% 1000 Ml) 1,000 mls @ 75 mls/hr IV DIRECT [facility] Last Admin: 08/15/18 05:19 Dose: 75 mls/hr Levofloxacin (Levaquin) 750 mg PO Q24HR [facility] Last Admin: 08/16/18 10:06 Dose: 750 mg Metoclopramide HCl (Reglan) 10 mg IV Q6H [facility] Last Admin: 08/16/18 00:10 Dose: 10 mg Metronidazole (Flagyl) 500 mg PO Q8HR [facility] Last Admin: 08/16/18 06:11 Dose: 500 mg Ondansetron HCl (Zofran) 4 mg IV Q8H PRN PRN Reason: Nausea And Vomiting Last Admin: 08/14/18 17:07 Dose: 4 mg Oxycodone/Acetaminophen (Percocet 5/325) 2 tab PO Q6H PRN PRN Reason: Pain, Moderate (4-6) Last Admin: 09/29/18 10:29 Dose: 2 tab Pantoprazole Sodium (Protonix) 40 mg IV QDAY [facility] Polyethylene Glycol (Miralax 3350) 17 gm PO QDAY [facility] Last Admin: 08/16/18 10:06 Dose: 17 gm Prednisone (Deltasone) 40 mg PO QDAY [facility] Last Admin: 08/16/18 10:05 Dose: 40 mg Exam - Constitutional Vitals: Last Vital Signs Temp 97.5 F L 08/16/18 07:41 Pulse 64 08/16/18 07:41 Resp 16 08/16/18 10:29 BP 160/94 08/16/18 07:41 Pulse Ox 98 08/16/18 07:41 Pain Intensity (0-10): denies any pain General appearance: no acute distress Performance status: 2- selfcare, ambulatory - Neck Neck: supple - Respiratory Respiratory: bilateral: CTA - Cardiovascular Rhythm: regular Extremities: No edema - Gastrointestinal General gastrointestinal: Present: soft Assessment and Plan At this time, patient is under Dr. Arriaga's care and is to start chemotherapy under her care. He is possibly to be discharged in a day or so. I will see him on a when necessary basis. He already has his information about his oncologist and radiation oncologist. I will sign off. Thank you
--- NOTE | 2018-08-16 13:03 | Discharge Summary ---
Providers - Providers Date of Admission: 08/13/18 03:34 Date of discharge: 08/16/18 Attending physician: CHET MARTINEZ 08/14/18 12:50 Consult to Physician [CONS] Routine Comment: MALIHA/LELIA Consulting Provider: JUAN JEFFERS Physician Instructions: [phone] WAS CALLED TO ZEYAD Reason For Exam: Acute diverticulitis 08/15/18 11:05 Consult to Physician [CONS] Routine Comment: called spoke to suraj/bety Consulting Provider: CLAUDIA YO Physician Instructions: Reason For Exam: lung cancer with mets 08/15/18 11:06 Consult to Physician [CONS] Routine Comment: called answ. serv./ bety Consulting Provider: JESÚS KEENAN Physician Instructions: Reason For Exam: Abdominal pain, diverticulitis Primary care physician: CUSTOMER SUPPORT COORDINATOR Hospitalization Condition: Fair Disposition: DC-01 TO HOME OR SELFCARE Core Measure Documentation - Palliative Care Palliative Care/ Comfort Measures: Not Applicable - Core Measures Any of the following diagnoses?: none Exam - Constitutional Vitals: Temp Pulse Resp BP Pulse Ox 97.5 F L 64 16 160/94 98 08/16/18 07:41 08/16/18 07:41 08/16/18 10:29 08/16/18 07:41 08/16/18 07:41 Plan Activity: no restrictions Diet: other (GI soft diet) Additional Instructions: 1.Follow up with PCP in 3-5 days. 2.Follow up with Dr. Arriaga in 1 week. 3.Follow up with TIFFANIE Johnson in 1 week Follow up with: PRIMARY CARE, [Primary Care Provider] - 3-5 Days Prescriptions: levoFLOXacin [Levaquin] 750 mg PO QDAY #3 tablet metroNIDAZOLE [Flagyl] 500 mg PO Q8HR 3 Days tablet
[2018-08-16 14:07] VITALS: BP 140/85
[2018-08-16] MEDS: ZOFRAN IV PRN (15:31)
== END 2018-08-16 15:30 | disposition home or self-care (01) | DRG 189 ==
LOC: ED 18:54 → 2B-ACE 08-13 03:34
PROVIDERS: ADMIT Internal Medicine; ATTEND Internal Medicine
DX: J96.01 Acute respiratory failure with hypoxia (principal); C34.90 Malignant neoplasm of unspecified part of unspecified bronchus or lung; K57.92 Diverticulitis of intestine, part unspecified, without perforation or abscess without bleeding; E11.9 Type 2 diabetes mellitus without complications; C79.31 Secondary malignant neoplasm of brain; G40.909 Epilepsy, unspecified, not intractable, without status epilepticus; C78.7 Secondary malignant neoplasm of liver and intrahepatic bile duct; K59.00 Constipation, unspecified; Z88.0 Allergy status to penicillin; Z88.8 Allergy status to other drugs, medicaments and biological substances; Z91.041 Radiographic dye allergy status
CPT/HCPCS: 36415; 74022; 74176; 78582; 80053; 81001; 83690; 84484; 85025; 85379; 93005; 93010; A9540; A9558; C9113; J1170; J1644; J1956; J2270; J2405; J2765; J3010; J7030; J7512

== ENCOUNTER 2018-08-17 09:24 | Emergency (ER) | payer MEDICARE ==
[2018-08-17] MEDS ORDERED: NACL 0.9% 1000 ML 1,000 ML IV ONE (09:54)
[2018-08-17] MEDS ORDERED: MORPHINE IV ONE (10:10)
[2018-08-17] MEDS ORDERED: MORPHINE ONE (10:10)
[2018-08-17] MEDS ORDERED: ZOFRAN ONE (10:10)
[2018-08-17] MEDS ORDERED: ZOFRAN IV ONE (10:11)
[2018-08-17 10:48] LABS: Basophils % (Auto) 0.8 % (0.0-1.8); Eosinophils % (Auto) 0.2 % (0.0-4.3); Hemoglobin 12.1 gm/dl (11.8-15.2); Lymphocytes % (Auto) 16.8 % (13.4-35.0); Mean Corpuscular HGB Conc 34 % (32-34); Mean Corpuscular Hemoglobin 28 pg (28-32); Mean Corpuscular Volume 84 fl (84-94); Monocytes # (Auto) 0.7 K/mm3 (0.0-0.8); Monocytes % (Auto) 11.5 % (0.0-7.3); Platelet Count 332 K/mm3 (140-440); Red Blood Count 4.28 M/mm3 (3.65-5.03); Red Cell Distribution Width 15.2 % (13.2-15.2)
--- NOTE | 2018-08-17 10:58 | Emergency Department Report ---
ED Abdominal Pain HPI - General Chief Complaint: Abdominal Pain Stated Complaint: CHEST PAIN/SOB Time Seen by Provider: 08/17/18 10:38 Source: patient Mode of arrival: Wheelchair Limitations: No Limitations - History of Present Illness Initial Comments: 72-year-old male with history of lung cancer with metastatic disease to liver and brain presents to the ED with complaints of right upper quadrant pain. Patient was discharged from here on yesterday, admitted for abdominal pain with findings of diverticulitis on CT. Patient reports that his right upper quadrant pain is chronic. Patient states that while he was hospitalized, he was receiving Dilaudid for pain, which he is now requesting. Patient states he only has Percocet at home and states it is not sufficiently relieving his pain. States morphine does not help either. Patient reports nausea. Denies vomiting, fever. Pt also reported shortness of breath, which he also states is chronic due to his lung cancer. Patient denies chest pain. Of note, during last admission patient underwent a VQ scan 5 days ago that showed low probability for PE. MD Complaint: abdominal pain Location: RUQ Radiation: none Migration to: no migration Severity: moderate Severity scale (0 -10): 10 Quality: aching Consistency: constant Improves With: medication (dilaudid) Worsens With: nothing Context: other (malignancy, chronic pain) Associated Symptoms: nausea. denies: vomiting, diarrhea, fever Treatments Prior to Arrival: other (Percocet) - Related Data Home Medications Medication Instructions Recorded Confirmed Last Taken Cyclobenzaprine [Flexeril 10 MG 10 mg PO TID PRN 07/14/14 08/13/18 08/12/18 10: 00 TAB] Esomeprazole Magnesium [NexIUM] 20 mg PO QDAY 07/14/14 08/13/18 08/12/18 10:00 Omeprazole [PriLOSEC] 20 mg PO QDAY 07/14/14 08/13/18 08/12/18 10:00 predniSONE [Deltasone] 40 mg PO QDAY 07/14/14 08/13/18 08/12/18 10:00 raNITIdine HCl [Zantac 300 MG TAB] 300 mg PO DAILY 07/14/14 08/13/18 08/12/18 10 :00 Previous Rx's Medication Instructions Recorded Last Taken Type HYDROcodone/APAP 5-325 [[place] 1 each PO Q6HR PRN #7 tablet 07/18/14 08/12/18 10: 00 Rx 5-325 mg TAB] Ondansetron [Zofran ODT TAB] 4 mg PO Q8HR PRN #20 tab.rapdis 07/21/18 08/12/18 10:00 Rx Promethazine [Phenergan SUPPOS] 25 mg [place] Q6HR PRN #20 supp.rect 07/21/18 10:00 Rx Docusate Sodium [Colace] 100 mg PO BID #60 capsule 08/16/18 Unknown Rx Metoclopramide HCl [Reglan TAB] 5 mg PO TIDAC PRN #20 tablet 08/16/18 Unknown Rx levoFLOXacin [Levaquin] 750 mg PO QDAY #3 tablet 08/16/18 Unknown Rx metroNIDAZOLE [Flagyl] 500 mg PO Q8HR 3 Days tablet 08/16/18 Unknown Rx Allergies Allergy/AdvReac Type Severity Reaction Status Date / Time ibuprofen Allergy Unknown Verified 07/18/14 15:39 Penicillins Allergy Unknown Verified 01/03/14 12:00 tramadol Allergy Hives Verified 07/18/14 15:39 iv dye Allergy Unknown Uncoded 08/13/18 00:53 ED Review of Systems ROS: Stated complaint: CHEST PAIN/SOB Other details as noted in HPI Comment: All other systems reviewed and negative Constitutional: denies: chills, fever Respiratory: shortness of breath Cardiovascular: denies: chest pain Gastrointestinal: abdominal pain, nausea. denies: vomiting, diarrhea ED Past Medical Hx - Past Medical History Previous Medical History?: Yes Hx Hypertension: Yes Hx Diabetes: Yes Hx of Cancer: Yes Hx Seizures: Yes Additional medical history: Lung Ca- with radiation and chemo with mets - Surgical History Additional Surgical History: hemorroid,. brain tumor - Social History Smoking Status: Former Smoker Substance Use Type: None - Medications Home Medications: Home Medications Medication Instructions Recorded Confirmed Last Taken Type Cyclobenzaprine [Flexeril 10 MG 10 mg PO TID PRN 07/14/14 08/13/18 08/12/18 10: 00 History TAB] Esomeprazole Magnesium [NexIUM] 20 mg PO QDAY 07/14/14 08/13/18 08/12/18 10:00 History Omeprazole [PriLOSEC] 20 mg PO QDAY 07/14/14 08/13/18 08/12/18 10:00 History predniSONE [Deltasone] 40 mg PO QDAY 07/14/14 08/13/18 08/12/18 10:00 History raNITIdine HCl [Zantac 300 MG TAB] 300 mg PO DAILY 07/14/14 08/13/18 08/12/18 10 :00 History HYDROcodone/APAP 5-325 [[place] 1 each PO Q6HR PRN #7 tablet 07/18/14 08/13/18 10:00 Rx 5-325 mg TAB] Ondansetron [Zofran ODT TAB] 4 mg PO Q8HR PRN #20 tab.rapdis 07/21/18 08/13/18 08/12/18 10:00 Rx Promethazine [Phenergan SUPPOS] 25 mg [place] Q6HR PRN #20 supp.rect 07/21/1808/12/18 10:00 Rx Docusate Sodium [Colace] 100 mg PO BID #60 capsule 08/16/18 Unknown Rx Metoclopramide HCl [Reglan TAB] 5 mg PO TIDAC PRN #20 tablet 08/16/18 Unknown Rx levoFLOXacin [Levaquin] 750 mg PO QDAY #3 tablet 08/16/18 Unknown Rx metroNIDAZOLE [Flagyl] 500 mg PO Q8HR 3 Days tablet 08/16/18 Unknown Rx ED Physical Exam - General Limitations: No Limitations General appearance: alert, in no apparent distress - Head Head exam: Present: other (marisa present in occipital scalp down to posterior neck) - ENT ENT exam: Present: mucous membranes moist - Neck Neck exam: Present: other (marisa in place posteriorly, appear clean, skin healing well) - Respiratory Respiratory exam: Present: normal lung sounds bilaterally, other (pt not tachypneic). Absent: respiratory distress, wheezes - Cardiovascular Cardiovascular Exam: Present: regular rate, normal rhythm - GI/Abdominal GI/Abdominal exam: Present: soft, tenderness (RUQ tenderness present). Absent: distended, guarding, rebound - Extremities Exam Extremities exam: Present: normal inspection - Neurological Exam Neurological exam: Present: alert, oriented X3 - Psychiatric Psychiatric exam: Present: normal affect, normal mood - Skin Skin exam: Present: warm, dry, intact, normal color ED Course Vital Signs 08/17/18 08/17/18 08/17/18 09:47 09:51 10:41 Temperature 97.8 F Pulse Rate 100 H 88 Respiratory 20 10 L Rate Blood Pressure 121/87 120/81 Blood Pressure [Left] O2 Sat by Pulse 96 Oximetry 08/17/18 08/17/18 08/17/18 10:45 10:53 11:00 Temperature Pulse Rate 86 82 Respiratory 18 16 19 Rate Blood Pressure 120/81 114/73 Blood Pressure [Left] O2 Sat by Pulse 100 99 Oximetry 08/17/18 08/17/18 08/17/18 11:15 11:31 11:45 Temperature Pulse Rate 81 82 105 H Respiratory 15 12 23 Rate Blood Pressure 114/73 114/73 114/73 Blood Pressure [Left] O2 Sat by Pulse 98 97 97 Oximetry 08/17/18 08/17/18 08/17/18 12:01 12:15 12:23 Temperature Pulse Rate 80 82 Respiratory 20 14 18 Rate Blood Pressure 138/89 138/89 Blood Pressure [Left] O2 Sat by Pulse 97 99 Oximetry 08/17/18 08/17/18 08/17/18 12:31 12:45 12:49 Temperature Pulse Rate 80 79 Respiratory 17 15 18 Rate Blood Pressure 138/89 132/88 Blood Pressure [Left] O2 Sat by Pulse 98 97 100 Oximetry 08/17/18 08/17/18 12:52 12:53 Temperature 98 F Pulse Rate 79 Respiratory 18 16 Rate Blood Pressure Blood Pressure 132/88 [Left] O2 Sat by Pulse 100 Oximetry ED Medical Decision Making - Lab Data Result diagrams: 08/17/18 10:19 08/17/18 10:19 - EKG Data -: EKG Interpreted by Hi EKG shows normal: sinus rhythm, axis, intervals, QRS complexes, ST-T waves Rate: normal - Radiology Data Radiology results: report reviewed, image reviewed FINAL REPORT EXAM: XR CHEST 1V AP HISTORY: sob COMPARISON: Chest radiograph performed on 07/21/2018 TECHNIQUE: Single portable view of the chest FINDINGS: Right chest port with tip of the catheter at the superior cavoatrial junction. The cardiomediastinal silhouette is normal in appearance. There are streaky bibasilar opacities. No pleural effusion or pneumothorax. No acute bony or soft tissue abnormality. IMPRESSION: Streaky bibasilar opacities that may reflect atelectasis. Interval placement of right-sided chest port with tip of the catheter at the superior cavoatrial junction. Transcribed By: FAITH Dictated By: MYRIAM HUYNH MD Electronically Authenticated By: MYRIAM HUYNH MD Signed Date/Time: 08/17/18 1215 - Medical Decision Making 72-year-old male with metastatic lung cancer to the brain and liver here in ED with complaints of chronic upper quadrant pain. Patient discharged from hospital on yesterday, states he is receiving IV Dilaudid and current home medication of Percocet does not help his pain. Labs unremarkable. Vital signs normal, with normal O2 sats. Patient in no respiratory distress. CXR shows possible atelectasis, no infiltrates, effusion or pulmonary edema. Patient given one dose of morphine 4 mg, which he states did not help his pain. Then given 0.5 mg of Dilaudid. Patient comfortable, in no distress. Advised patient to follow up with Dr. Arriaga, his oncologist, for further pain management. - Differential Diagnosis chronic pain, pulm edema, pneumonia, chronic dyspnea Critical care attestation.: If time is entered above; I have spent that time in minutes in the direct care of this critically ill patient, excluding procedure time. ED Disposition Clinical Impression: Abdominal pain, chronic, right upper quadrant Disposition: DC-01 TO HOME OR SELFCARE Is pt being admited?: No Condition: Stable Instructions: Chronic Pain (ED) Referrals: PRIMARY CAREMD [Primary Care Provider] - 2-3 Days Time of Disposition: 12:36
[2018-08-17 11:06] LABS: Alanine Aminotransferase 24 units/L (7-56); Albumin 3.3 g/dL (3.9-5); BUN/Creatinine Ratio 11; Blood Urea Nitrogen 13 mg/dL (9-20); Calcium 8.8 mg/dL (8.4-10.2); Hemolysis Index 0
[2018-08-17] MEDS ORDERED: DILAUDID IV ONE (12:03)
--- NOTE | 2018-08-17 12:15 | XRay Report ---
FINAL REPORT EXAM: XR CHEST 1V AP HISTORY: sob COMPARISON: Chest radiograph performed on 07/21/2018 TECHNIQUE: Single portable view of the chest FINDINGS: Right chest port with tip of the catheter at the superior cavoatrial junction. The cardiomediastinal silhouette is normal in appearance. There are streaky bibasilar opacities. No pleural effusion or pneumothorax. No acute bony or soft tissue abnormality. IMPRESSION: Streaky bibasilar opacities that may reflect atelectasis. Interval placement of right-sided chest port with tip of the catheter at the superior cavoatrial junction.
[2018-08-17 12:16] LABS: Bacteria,Urine 1+ /HPF (Negative); Bilirubin,Urine NEG (Negative); Blood,Urine NEG (Negative); Color,Urine Yellow (Yellow); Mucus,Urine FEW /HPF; Protein,Urine <15 mg/dL mg/dL (Negative); Urobilinogen,Urine < 2.0 mg/dL (<2.0)
[2018-08-17 12:49] VITALS: BP 132/88
== END 2018-08-17 12:57 | disposition home or self-care (01) ==
LOC: ED 09:24
DX: R10.11 Right upper quadrant pain (principal); G89.29 Other chronic pain; I10 Essential (primary) hypertension; E11.9 Type 2 diabetes mellitus without complications; Z87.891 Personal history of nicotine dependence; Z88.0 Allergy status to penicillin; Z88.8 Allergy status to other drugs, medicaments and biological substances; Z88.6 Allergy status to analgesic agent; Z91.041 Radiographic dye allergy status
CPT/HCPCS: 36415; 71045; 80053; 81001; 84484; 85025; 93005; 93010; 96374; 96375; 99284; J1170; J2270; J2405; J7030

== ENCOUNTER 2018-08-26 07:25 | Emergency (ER) | payer MEDICARE ==
[2018-08-26 08:10] VITALS: BP 152/87
[2018-08-26] MEDS ORDERED: ALUM-MAG HYDROX-SIMETH 200-200-20MG/5ML PO ONE (08:44)
[2018-08-26] MEDS ORDERED: LIDOCAINE VISCOUS 2% PO ONE (08:44)
[2018-08-26 09:00] LABS: Basophils % (Auto) 1.1 % (0.0-1.8); Eosinophils # (Auto) 0.1 K/mm3 (0.0-0.4); Eosinophils % (Auto) 2.1 % (0.0-4.3); Hematocrit 34.1 % (35.5-45.6); Hemoglobin 11.3 gm/dl (11.8-15.2); Lymphocytes # (Auto) 0.9 K/mm3 (1.2-5.4); Lymphocytes % (Auto) 24.3 % (13.4-35.0); Mean Corpuscular HGB Conc 33 % (32-34); Mean Corpuscular Hemoglobin 28 pg (28-32); Mean Corpuscular Volume 84 fl (84-94); Monocytes # (Auto) 0.4 K/mm3 (0.0-0.8); Monocytes % (Auto) 10.8 % (0.0-7.3); Platelet Count 316 K/mm3 (140-440); Red Blood Count 4.06 M/mm3 (3.65-5.03); Red Cell Distribution Width 15.3 % (13.2-15.2)
[2018-08-26 09:23] LABS: Alanine Aminotransferase 9 units/L (7-56); Albumin 3.4 g/dL (3.9-5); BUN/Creatinine Ratio 13; Blood Urea Nitrogen 12 mg/dL (9-20); Calcium 8.6 mg/dL (8.4-10.2); Hemolysis Index 1
--- NOTE | 2018-08-26 09:34 | XRay Report ---
ABDOMINAL SERIES: History: Abdominal pain. Erect chest film shows no acute or significant changes involving the heart or lung lopez. There is no evidence of free air beneath the diaphragms. The gas pattern within the abdomen is unremarkable. There is no evidence of bowel dilatation, significant air-fluid levels, or masses. Organ shadows are unremarkable. IMPRESSION: Abdominal series within normal limits.
--- NOTE | 2018-08-26 10:12 | Emergency Department Report ---
ED General Adult HPI - General Chief complaint: Neck Pain/Injury Stated complaint: BODY PAIN DUE TO CANCER Time Seen by Provider: 08/26/18 08:23 Source: patient, EMS Mode of arrival: Stretcher Limitations: No Limitations - History of Present Illness Initial comments: 72-year-old male presents to ED with generalized pain. Patient has history of lung cancer with metastatic disease to liver and brain. Patient reports burning sensation and the abdomen radiating throughout body. Patient had brain surgery a few weeks ago to remove a metastatic tumors. Patient has pain medication at home, Percocet, however states it is not helping his pain. Patient states the pain that he is experiencing in his abdomen is his usual pain. Patient denies nausea, vomiting, shortness of breath. -: Last night Location: neck, abdomen Quality: burning Consistency: constant Improves with: none Worsens with: none Associated Symptoms: headaches. denies: fever/chills, nausea/vomiting, shortness of breath - Related Data Home Medications Medication Instructions Recorded Confirmed Last Taken Cyclobenzaprine [Flexeril 10 MG 10 mg PO TID PRN 07/14/14 08/13/18 08/12/18 10: 00 TAB] Esomeprazole Magnesium [NexIUM] 20 mg PO QDAY 07/14/14 08/13/18 08/12/18 10:00 Omeprazole [PriLOSEC] 20 mg PO QDAY 07/14/14 08/13/18 08/12/18 10:00 predniSONE [Deltasone] 40 mg PO QDAY 07/14/14 08/13/18 08/12/18 10:00 raNITIdine HCl [Zantac 300 MG TAB] 300 mg PO DAILY 07/14/14 08/13/18 08/12/18 10 :00 Previous Rx's Medication Instructions Recorded Last Taken Type HYDROcodone/APAP 5-325 [[place] 1 each PO Q6HR PRN #7 tablet 07/18/14 08/12/18 10: 00 Rx 5-325 mg TAB] Ondansetron [Zofran ODT TAB] 4 mg PO Q8HR PRN #20 tab.rapdis 07/21/18 08/12/18 10:00 Rx Promethazine [Phenergan SUPPOS] 25 mg [place] Q6HR PRN #20 supp.rect 07/21/18 10:00 Rx Docusate Sodium [Colace] 100 mg PO BID #60 capsule 08/16/18 Unknown Rx Metoclopramide HCl [Reglan TAB] 5 mg PO TIDAC PRN #20 tablet 08/16/18 Unknown Rx levoFLOXacin [Levaquin] 750 mg PO QDAY #3 tablet 08/16/18 Unknown Rx metroNIDAZOLE [Flagyl] 500 mg PO Q8HR 3 Days tablet 08/16/18 Unknown Rx Allergies Allergy/AdvReac Type Severity Reaction Status Date / Time ibuprofen Allergy Unknown Verified 07/18/14 15:39 Penicillins Allergy Unknown Verified 01/03/14 12:00 tramadol Allergy Hives Verified 07/18/14 15:39 iv dye Allergy Unknown Uncoded 08/13/18 00:53 ED Review of Systems ROS: Stated complaint: BODY PAIN DUE TO CANCER Other details as noted in HPI Comment: All other systems reviewed and negative Constitutional: denies: chills, fever Respiratory: denies: shortness of breath Cardiovascular: denies: chest pain Gastrointestinal: abdominal pain. denies: nausea, vomiting Neurological: denies: headache ED Past Medical Hx - Past Medical History Hx Hypertension: Yes Hx Diabetes: Yes Hx Seizures: Yes Additional medical history: Lung Ca- with radiation and chemo with mets - Surgical History Past Surgical History?: Yes Additional Surgical History: hemorroid,. brain tumor - Social History Smoking Status: Never Smoker Substance Use Type: None - Medications Home Medications: Home Medications Medication Instructions Recorded Confirmed Last Taken Type Cyclobenzaprine [Flexeril 10 MG 10 mg PO TID PRN 07/14/14 08/13/18 08/12/18 10: 00 History TAB] Esomeprazole Magnesium [NexIUM] 20 mg PO QDAY 07/14/14 08/13/18 08/12/18 10:00 History Omeprazole [PriLOSEC] 20 mg PO QDAY 07/14/14 08/13/18 08/12/18 10:00 History predniSONE [Deltasone] 40 mg PO QDAY 07/14/14 08/13/18 08/12/18 10:00 History raNITIdine HCl [Zantac 300 MG TAB] 300 mg PO DAILY 07/14/14 08/13/18 08/12/18 10 :00 History HYDROcodone/APAP 5-325 [[place] 1 each PO Q6HR PRN #7 tablet 07/18/14 08/13/18 10:00 Rx 5-325 mg TAB] Ondansetron [Zofran ODT TAB] 4 mg PO Q8HR PRN #20 tab.rapdis 07/21/18 08/13/18 08/12/18 10:00 Rx Promethazine [Phenergan SUPPOS] 25 mg [place] Q6HR PRN #20 supp.rect 07/21/1808/12/18 10:00 Rx Docusate Sodium [Colace] 100 mg PO BID #60 capsule 08/16/18 Unknown Rx Metoclopramide HCl [Reglan TAB] 5 mg PO TIDAC PRN #20 tablet 08/16/18 Unknown Rx levoFLOXacin [Levaquin] 750 mg PO QDAY #3 tablet 08/16/18 Unknown Rx metroNIDAZOLE [Flagyl] 500 mg PO Q8HR 3 Days tablet 08/16/18 Unknown Rx ED Physical Exam - General Limitations: No Limitations General appearance: alert, in no apparent distress - Head Head exam: Present: atraumatic, normocephalic - Eye Eye exam: Present: normal appearance - ENT ENT exam: Present: mucous membranes moist - Neck Neck exam: Present: other (scar to midline posterior neck, appears clean/dry/ intact, ROM nml) - Respiratory Respiratory exam: Present: normal lung sounds bilaterally. Absent: respiratory distress - Cardiovascular Cardiovascular Exam: Present: regular rate, normal rhythm - GI/Abdominal GI/Abdominal exam: Present: soft, tenderness (mild diffuse tenderness). Absent : distended, guarding, rebound - Extremities Exam Extremities exam: Present: normal inspection - Neurological Exam Neurological exam: Present: alert, oriented X3 - Psychiatric Psychiatric exam: Present: other (loud, yelling, demanding pain medication) - Skin Skin exam: Present: warm, dry, intact, normal color. Absent: rash ED Course Vital Signs 08/26/18 08:07 Temperature 98.7 F Pulse Rate 75 Respiratory 18 Rate Blood Pressure 152/87 O2 Sat by Pulse 99 Oximetry ED Medical Decision Making - Lab Data Result diagrams: 08/26/18 08:45 08/26/18 08:45 - Radiology Data Radiology results: report reviewed, image reviewed - Medical Decision Making 72-year-old male with chronic pain secondary to malignancy. Patient reported burning abdominal pain radiating to the entire body. States pain is same as usual pain. Patient given a GI cocktail. Patient angry, yelling, demanding pain medications via IV. Labs, vitals, abdominal series unremarkable. Patient advised to follow-up with his oncologist for pain management, since he feels that his Percocet is not alleviating his pain. Will be discharged at this time - Differential Diagnosis chronic pain, bowel obstruction, pneumonia Critical care attestation.: If time is entered above; I have spent that time in minutes in the direct care of this critically ill patient, excluding procedure time. ED Disposition Clinical Impression: Chronic pain due to neoplasm Disposition: DC-01 TO HOME OR SELFCARE Is pt being admited?: No Condition: Stable Instructions: Chronic Pain (ED) Referrals: PRIMARY CARE, [Primary Care Provider] - [facility] Time of Disposition: 10:11
== END 2018-08-26 11:20 | disposition home or self-care (01) ==
LOC: ED 07:25
DX: G89.29 Other chronic pain (principal); R51 Headache; M79.10 Myalgia, unspecified site; R10.84 Generalized abdominal pain; M54.2 Cervicalgia; I10 Essential (primary) hypertension; E11.9 Type 2 diabetes mellitus without complications; Z85.118 Personal history of other malignant neoplasm of bronchus and lung; Z88.0 Allergy status to penicillin; Z88.8 Allergy status to other drugs, medicaments and biological substances; Z88.6 Allergy status to analgesic agent; Z91.041 Radiographic dye allergy status
CPT/HCPCS: 36415; 74022; 80053; 85025; 99284